=== PATIENT | female | born 1965 | race Caucasian/White ===

== ENCOUNTER → 2017-11-26 | Outpatient (CLI) | payer OTHER ==
[2017-11-26 09:42] LABS: ALT 29 U/L (9-52); AST 23 U/L (14-36); Cholesterol 168 mg/dL (<200); Glucose 97 mg/dL (74-99); HDL Cholesterol 45 mg/dL (40-60); LDL Cholesterol,Calculated 110 mg/dL (0-99); Triglycerides 67 mg/dL (<150)
== END | disposition home or self-care (01) ==
LOC: LABWHC1 08:48
PROVIDERS: ATTEND Family Medicine
DX: E78.2 Mixed hyperlipidemia (principal)
CPT/HCPCS: 36415; 80061; 82947; 84450; 84460

== ENCOUNTER → 2018-05-31 | Outpatient (CLI) | payer OTHER ==
[2018-05-31 09:52] LABS: HCT 40.8 % (34.0-46.0); HGB 13.8 gm/dL (11.4-16.0); MCH 31.4 pg (25.0-35.0); MCHC 33.9 g/dL (31.0-37.0); MCV 92.6 fL (80.0-100.0); Mean Platelet Volume 6.9; Platelet Count 233 k/uL (150-450); RDW 12.8 % (11.5-15.5); WBC 5.2 k/uL (3.8-10.6)
[2018-05-31 10:04] LABS: Appearance,Urine Cloudy (Clear); Bilirubin,Urine Negative (Negative); Blood,Urine Negative (Negative); Color,Urine Yellow; Glucose,Urine (UA) Negative (Negative); Ketones,Urine Negative (Negative); Leukocyte Esterase,Urine Moderate (Negative); Mucus,Urine Many /hpf; Nitrite,Urine Negative (Negative); PH, Urine 5.5 (5.0-8.0); Protein,Urine Trace (Negative); RBC,Urine 2 /hpf (0-5); Specific Gravity,Urine 1.022 (1.001-1.035); Squamous Epithelial Cell,Urine 8 /hpf (0-4); Urobilinogen,Urine <2.0 mg/dL (<2.0); WBC,Urine 3 /hpf (0-5)
[2018-05-31 17:29] LABS: Albumin 4.6 g/dL (3.80-4.90); Albumin/Globulin Ratio 2.19 (1.20-2.10); Anion Gap 8.9 mmol/L (4.00-12.00); Calcium 9.5 mg/dL (8.7-10.3); Carbon Dioxide 26.1 mmol/L (21.6-31.8); Globulin 2.1 g/dL (1.6-3.3); LDL Cholesterol,Calculated 139.4 mg/dL (0.0-131.0); Potassium 4.4 mmol/L (3.5-5.5); Total Bilirubin 0.6 mg/dL (0.2-1.2); Total Protein 6.7 g/dL (6.2-8.2); VLDL Calculation 19.6 mg/dL (5.00-40.00)
== END ==
LOC: LABWHC1 09:00
PROVIDERS: ATTEND Family Medicine
DX: Z00.00 Encounter for general adult medical examination without abnormal findings (principal)
CPT/HCPCS: 36415; 80053; 80061; 81001; 85027

== ENCOUNTER → 2018-11-19 | Outpatient (CLI) | payer BC ==
--- NOTE | 2018-11-20 10:06 | CT ---
EXAMINATION TYPE: CT foot LT wo con DATE OF EXAM: 11/19/2018 COMPARISON: No plain film supplied for correlation HISTORY: left heal pain CT DLP: 256 mGycm Automated exposure control for dose reduction was used. Helical imaging through the left foot. Bernstein l and sagittal reconstructions. FINDINGS: Soft tissue swelling is present. Small ossific density present lateral to the distal calcaneus is fla ke-like, only 1 to 2 mm by 7 mm in size, axial image 39, coronal image 41 No evident dislocation. No obvious Achilles tendon rupture, flexor and extensor tendons thought to be intact, peroneal longus an d brevis tendons show an expected normal course. IMPRESSION: POSSIBLE SMALL CHIP FRACTURE SOFT TISSUE SWELLING. FOOT MRI MAY BE OF INCREASED SENSITIVITY.
== END | disposition home or self-care (01) ==
LOC: RADCTMAIN 16:40
PROVIDERS: ATTEND Orthopaedic Surgery
DX: M25.572 Pain in left ankle and joints of left foot (principal)

== ENCOUNTER → 2018-11-19 | Outpatient (CLI) | payer BC | END | disposition home or self-care (01) | LOC: LABWHC1 15:41 | PROVIDERS: ATTEND Family Medicine | DX: E78.2 Mixed hyperlipidemia (principal) | CPT/HCPCS: 36415; 80061; 84450; 84460 ==

== ENCOUNTER → 2019-06-17 | Outpatient (CLI) | payer BC ==
[2019-06-17 10:13] LABS: HCT 37.6 % (34.0-46.0); HGB 12.8 gm/dL (11.4-16.0); MCH 31.7 pg (25.0-35.0); MCHC 34.1 g/dL (31.0-37.0); Mean Platelet Volume 7.3; Platelet Count 254 k/uL (150-450); RBC 4.04 m/uL (3.80-5.40); RDW 12.9 % (11.5-15.5); WBC 5.1 k/uL (3.8-10.6)
[2019-06-17 10:40] LABS: Appearance,Urine Cloudy (Clear); Bacteria,Urine Many /hpf; Bilirubin,Urine Negative (Negative); Blood,Urine Negative (Negative); Color,Urine Yellow; Glucose,Urine (UA) Negative (Negative); Ketones,Urine Negative (Negative); Leukocyte Esterase,Urine Large (Negative); Mucus,Urine Occasional /hpf; Nitrite,Urine Negative (Negative); PH, Urine 5.5 (5.0-8.0); Protein,Urine Negative (Negative); Squamous Epithelial Cell,Urine 1 /hpf (0-4); Urobilinogen,Urine <2.0 mg/dL (<2.0); WBC,Urine 64 /hpf (0-5)
[2019-06-17 15:54] LABS: Albumin 4.5 g/dL (3.80-4.90); Albumin/Globulin Ratio 2.14 (1.60-3.17); Anion Gap 6.7 mmol/L (4.00-12.00); Calcium 9.3 mg/dL (8.7-10.3); Carbon Dioxide 28.3 mmol/L (21.6-31.8); Chol/HDL Ratio 4.31; Globulin 2.1 g/dL (1.6-3.3); LDL Cholesterol,Calculated 157.2 mg/dL (0.0-131.0); Non-African American GFR(CKD) 72.5 (60.0-200.0); Potassium 4.7 mmol/L (3.5-5.5); Total Bilirubin 0.6 mg/dL (0.3-1.2); Total Protein 6.6 g/dL (6.2-8.2); VLDL Calculation 14.8 mg/dL (5.00-40.00)
== END | disposition home or self-care (01) ==
LOC: LABWHC1 09:32
PROVIDERS: ATTEND Family Medicine
DX: Z00.00 Encounter for general adult medical examination without abnormal findings (principal)
CPT/HCPCS: 36415; 80053; 80061; 81001; 85027

== ENCOUNTER → 2020-01-20 | Outpatient (CLI) | payer BC ==
[2020-01-20 16:16] LABS: Albumin 4.5 g/dL (3.80-4.90); Albumin/Globulin Ratio 1.8 (1.60-3.17); Anion Gap 7.6 mmol/L (4.00-12.00); BUN/Creat Ratio 16.67 Ratio (12.00-20.00); Calcium 9.8 mg/dL (8.7-10.3); Carbon Dioxide 28.4 mmol/L (21.6-31.8); Chol/HDL Ratio 4.6; Globulin 2.5 g/dL (1.6-3.3); LDL Cholesterol,Calculated 150.8 mg/dL (0.0-131.0); Non-African American GFR(CKD) 72.5 (60.0-200.0); Potassium 4.5 mmol/L (3.5-5.5); Total Bilirubin 0.7 mg/dL (0.2-1.2); VLDL Calculation 22.2 mg/dL (5.00-40.00)
== END | disposition home or self-care (01) ==
LOC: LABWHC1 10:29
PROVIDERS: ATTEND Family Medicine
DX: Z00.01 Encounter for general adult medical examination with abnormal findings (principal)
CPT/HCPCS: 36415; 80053; 80061

== ENCOUNTER → 2020-07-29 | Outpatient (CLI) | payer BC ==
[2020-07-29 10:59] LABS: HCT 36.9 % (37.2-46.3); HGB 12.3 g/dL (12.0-15.0); MCHC 33.3 g/dL (32.0-37.0); MCV 92.9 fL (80.0-97.0); Mean Platelet Volume 10.1 fL (9.5-12.2); Platelet Count 234 X 10*3/uL (140-440); RBC 3.97 X 10*6/uL (4.10-5.20); RDW 12.4 % (11.5-14.5); WBC 5.72 X 10*3/uL (4.50-10.00)
[2020-07-29 13:21] LABS: African American GFR (CKD) 96.2 (60.0-200.0); Albumin 4.5 g/dL (3.80-4.90); Albumin/Globulin Ratio 1.88 (1.60-3.17); BUN/Creat Ratio 23.75 Ratio (12.00-20.00); Calcium 8.9 mg/dL (8.7-10.3); Chol/HDL Ratio 4.2; Globulin 2.4 g/dL (1.6-3.3); LDL Cholesterol,Calculated 138.6 mg/dL (0.0-131.0); Potassium 4.2 mmol/L (3.5-5.5); Total Bilirubin 0.4 mg/dL (0.3-1.2); Total Protein 6.9 g/dL (6.2-8.2); VLDL Calculation 24.4 mg/dL (5.00-40.00)
== END | disposition home or self-care (01) ==
LOC: LABWHC1 07:32
PROVIDERS: ATTEND Family Medicine
DX: Z00.01 Encounter for general adult medical examination with abnormal findings (principal); E55.9 Vitamin D deficiency, unspecified
CPT/HCPCS: 36415; 80053; 80061; 82306; 85027

== ENCOUNTER → 2022-02-06 | Outpatient (CLI) | payer BC ==
[2022-02-06 15:37] LABS: HCT 38.9 % (37.2-46.3); HGB 13.1 g/dL (12.0-15.0); MCH 30.5 pg (27.0-32.0); MCHC 33.7 g/dL (32.0-37.0); MCV 90.7 fL (80.0-97.0); Mean Platelet Volume 10.1 fL (9.5-12.2); NRBC Per 100 WBC 0 /100 WBCS (0.0-0.0); Platelet Count 235 X 10*3/uL (140-440); RBC 4.29 X 10*6/uL (4.10-5.20); RDW 12.7 % (11.5-14.5); WBC 4.63 X 10*3/uL (4.50-10.00)
[2022-02-06 16:38] LABS: ALT 23 U/L (8-44); AST 25 U/L (13-35); African American GFR (CKD) 82.3 (60.0-200.0); Albumin 4.6 g/dL (3.8-4.9); Alkaline Phosphatase 90 U/L (41-126); BUN/Creat Ratio 12.78 Ratio (12.00-20.00); Blood Urea Nitrogen 11.5 mg/dL (9.0-27.0); Calcium 9.7 mg/dL (8.7-10.3); Carbon Dioxide 27.9 mmol/L (20.0-27.5); Chloride 103 mmol/L (96-109); Chol/HDL Ratio 4.63 Ratio; Globulin 2.7 g/dL (1.6-3.3); Glucose 105 mg/dL (70-110); LDL Cholesterol,Calculated 151.2 mg/dL (0.0-131.0); Potassium 4.8 mmol/L (3.5-5.5); Sodium 141 mmol/L (135-145); Total Protein 7.3 g/dL (6.2-8.2)
== END | disposition home or self-care (01) ==
LOC: LABWHC1 10:08
PROVIDERS: ATTEND Family Medicine
DX: Z00.01 Encounter for general adult medical examination with abnormal findings (principal)
CPT/HCPCS: 36415; 80053; 80061; 85027

== ENCOUNTER → 2022-11-24 | Outpatient (CLI) | payer BC ==
--- NOTE | 2022-11-24 17:00 | US ---
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 painful TECHNIQUE: Multiple grayscale ultrasound images of the area concern in the left lateral upper thigh was performed. FINDINGS/IMPRESSION: Scanned within area of concern, left lateral upper thigh. No discrete mass or f luid collection identified in the patient's region of palpable abnormality.
--- NOTE | 2022-11-24 17:02 | US ---
EXAMINATION TYPE: US mass soft tissue chest/back DATE OF EXAM: 11/24/2022 COMPARISON: NONE CLINICAL INDICATION: Female, 57 years old with history of D17.22 BENIGN LIPOMATOUS NEOPLASM OF SKIN A ND SUBCUTANEOUS T; Lump left shoulder for 2 years, getting larger TECHNIQUE: Multiple grayscale and color Doppler ultrasound images of the left shoulder were obtained . FINDINGS/IMPRESSION: Scanned within area of concern, left upper arm, near shoulder. There is a isoec hoic area measuring 5.3 x 1.6 x 5.6 cm. This demonstrates internal striations without internal color flow. This is most consistent with a lipoma.
== END | disposition home or self-care (01) ==
LOC: RADUSWWP 16:03
PROVIDERS: ATTEND Surgery Plastic and Reconstructive Surgery
DX: D17.22 Benign lipomatous neoplasm of skin and subcutaneous tissue of left arm (principal); D17.24 Benign lipomatous neoplasm of skin and subcutaneous tissue of left leg

== ENCOUNTER 2023-01-12 06:14 | Day surgery (SDC) | payer BC ==
[~2023-01-12 06:14] MED LIST: DEXAMETHASONE SOD PHOSPHATE 4 MG/ML 1 ML VIAL IV ONE; HEPARIN SODIUM,PORCINE/PF 5,000 UNIT/0.5 ML SYRINGE SQ PRN; LACTATED RINGERS 1,000 ML IV SCH; LIDOCAINE 1% (10MG/ML) FOR IV START INTRADERMA PRN; ONDANSETRON 4 MG/2 ML VIAL IVP ONE; Pre Op ABX Message 1 EACH MISC MISCELLANE ONE
[2023-01-12] MEDS ORDERED: HYDROmorphone 0.5 MG/0.5 ML SYRINGE IVP PRN (07:00)
--- NOTE | 2023-01-12 07:35 | P.GSHP ---
History of Present Illness H&P Date: 01/12/23 CHIEF COMPLAINT: Tumor left upper arm, 8 cm HISTORY OF PRESENT ILLNESS: The patient is a 57 year-old male with left upper arm mass with tenderness over 5+ years. She now who presents for definitive excision. PAST MEDICAL HISTORY: Please see list. PAST SURGICAL HISTORY: Please see list. MEDICATIONS: Please see list. ALLERGIES: Please see list. SOCIAL HISTORY: No illicit drug use FAMILY HISTORY: No reports of Crohn disease or ulcerative colitis. REVIEW OF ORGAN SYSTEMS: CONSTITUTIONAL: No reports of fevers or chills. GI: Denies any blood in stools or constipation. PHYSICAL EXAM: VITAL SIGNS: Stable Musculoskeletal: No clubbing cyanosis GENERAL: Well developed and in no acute distress. Pleasant. HEENT: No sclera icterus. Extraocular movements grossly intact. Moist buccal mucosa. Head is atraumatic, normocephalic. Hears conversational speech. No nasal drainage. NECK: Supple without lymphadenopathy. No JV distention. CHEST: Non-labored respirations and equal bilateral excursions. CARDIOVASCULAR: Regular rate and rhythm. Palpable 2+ radial pulses. ABDOMEN: Soft. Non-tender. Nondistended. NEUROLOGIC: No focal or lateralizing signs. PSYCH: Appropriate affect. Alert and oriented to person, place and time. SKIN: Left upper arm tumor, 5 cm ASSESSMENT: 1. Left upper arm tumor, 5 cm PLAN: 1. Will proceed of excision of left upper arm tumor. Benefits and risks described. Past Medical History Past Medical History: GERD/Reflux, Hyperlipidemia, Hypertension History of Any Multi-Drug Resistant Organisms: None Reported Additional Past Surgical History / Comment(s): ARTHROSCOPY LEFT KNEE, BUNIONECTOMY RIGHT FOOT. D & C. Past Anesthesia/Blood Transfusion Reactions: No Reported Reaction Additional Past Anesthesia/Blood Transfusion Reaction / Comment(s): DAUGHTER PONV. Past Psychological History: No Psychological Hx Reported Smoking Status: Never smoker Past Alcohol Use History: Occasional Past Drug Use History: None Reported - Past Family History Mother Family Medical History: Deep Vein Thrombosis (DVT) Brother(s) Family Medical History: Pulmonary Embolus Medications and Allergies Home Medications Medication Instructions Recorded Confirmed Type Cholecalciferol [Vitamin D3 (25 1 tab PO DAILY 01/08/23 01/12/23 History Mcg = 1000 Iu)] Ibuprofen [Advil] 200 - 400 mg PO Q6H PRN 01/08/23 01/12/23 History Ubidecarenone [Co Q-10] 1 cap PO DAILY 01/08/23 01/12/23 History Pravastatin Sodium [Pravachol] 20 mg PO HS 01/12/23 01/12/23 History lisinopriL [Zestril] 10 mg PO DAILY 01/12/23 01/12/23 History Allergies Allergy/AdvReac Type Severity Reaction Status Date / Time adhesive tape AdvReac Rash/Hives Verified 01/12/23 06:39 Surgical - Exam Vital Signs Temp Pulse Resp BP Pulse Ox 97.9 F 66 18 150/79 99 01/12/23 06:33 01/12/23 06:33 01/12/23 06:33 01/12/23 06:33 01/12/23 06:33
[2023-01-12] MEDS ORDERED: PROPOFOL 10 MG/ML 20 ML VIAL IV ONE (07:40)
[2023-01-12] MEDS ORDERED: PHENYLEPHRINE-0.9% NACL SYG 1,000 MCG/10 ML SYRINGE ONE (07:40)
[2023-01-12] MEDS ORDERED: KETOROLAC 15 MG/ML 1 ML VIAL ONE (07:40)
[2023-01-12] MEDS ORDERED: MIDAZOLAM 2 MG/2 ML VIAL ONE (07:40)
[2023-01-12] MEDS ORDERED: fentaNYL (PF) 50 MCG/ML 2 ML AMP ONE (07:40)
[2023-01-12] MEDS ORDERED: LIDOCAINE 2% INJ 20 MG/ML (2 ML VIAL) ONE (07:40)
[2023-01-12] MEDS ORDERED: LIDOCAINE 1%-EPI 1:100,000 50 ML VIAL SQ ONE (08:07)
[2023-01-12] MEDS ORDERED: SODIUM CHLORIDE 0.9% 100 ML with ceFAZolin 2,000 MG IV ONE ×2 (08:07)
[2023-01-12 08:50] VITALS: TEMP 97.4
[2023-01-12 08:57] VITALS: RESP 16
--- NOTE | 2023-01-12 09:10 | P.OP ---
Date of Procedure: 01/12/23 Description of Procedure: SURGEON: KIERSTEN PEMBERTON MD PRODUCT SUPPORT MANAGER: NONE. PREOPERATIVE DIAGNOSES: 1. Left upper arm tumor 2. Hypertensive heart disease 3. Hyperlipidemia 4. Gastroesophageal reflux POSTOPERATIVE DIAGNOSES: 1. Left upper outer arm intramuscular, 5 cm x 4 cm 2. Hypertensive heart disease 3. Hyperlipidemia 4. Gastroesophageal reflux OPERATION: 1. Excision of complex left upper outer arm intramuscular/subfascial tumor, 5 cm x 4 cm 2. Intermediate closure of left upper outer arm incision, 8 cm. ANESTHESIA: LMA ESTIMATED BLOOD LOSS: 10 mL. SPECIMENS REMOVED: 1. Left upper arm intramuscular tumor COMPLICATIONS: None. FINDINGS: 1. Left upper outer arm intramuscular tumor, 5 x 4 cm complex tumor. INDICATIONS: The patient is a 57-year-old female who presents with left upper arm tumor. Surgical options, including excision was discussed. Benefits and risks were described. Informed consent was obtained. DESCRIPTION OF PROCEDURE: Patient was brought into the operating room, laid in left lateral decubitus position. After general sedation, the left upper arm was prepped and draped in standard sterile fashion using ChloraPrep. A timeout protocol was confirmed with the surgical team regarding patient's name including procedures to be performed. Preoperative medications was administered. Next, a local field block was administered. The left upper arm was measured using a ruler with borders marked with indelible marker. A transverse of 8 cm incision was made into the dermis followed by circumferential dissection using electro-Bovie cautery into the subfascial/intramuscular tissue of the left upper outer arm. Size of mass 5 cm x 4 cm, so fascial psoas intramuscular tumor. Hemostasis was checked with electrocautery. The wound was closed in multiple layers including 0 Vicryl for the deep subcutaneous tissue. The skin was closed using 3-0 Monocryl. The skin was cleansed. Exofin tape was placed. Optifoam dressing was placed. At the end of the procedure, needle, sponge, and instrument count had been verified correct by the manager surgical. The patient was taken to the postanesthesia care unit in stable condition. Plan - Discharge Summary Discharge Rx Participant: No New Discharge Prescriptions: New Acetaminophen Tab [Tylenol Tab] 1,000 mg PO Q6HR PRN #30 tablet PRN Reason: Pain Ibuprofen [Motrin] 600 mg PO Q8HR PRN #30 tab PRN Reason: Pain Continue Ubidecarenone [Co Q-10] 1 cap PO DAILY Pravastatin Sodium [Pravachol] 20 mg PO HS Cholecalciferol [Vitamin D3 (25 Mcg = 1000 Iu)] 1 tab PO DAILY lisinopriL [Zestril] 10 mg PO DAILY Discontinued Ibuprofen [Advil] 200 - 400 mg PO Q6H PRN PRN Reason: Pain Discharge Medication List Cholecalciferol [Vitamin D3 (25 Mcg = 1000 Iu)] 1 tab PO DAILY 01/08/23 [History] Ubidecarenone [Co Q-10] 1 cap PO DAILY 01/08/23 [History] Acetaminophen Tab [Tylenol Tab] 1,000 mg PO Q6HR PRN #30 tablet 01/12/23 [Rx] Ibuprofen [Motrin] 600 mg PO Q8HR PRN #30 tab 01/12/23 [Rx] Pravastatin Sodium [Pravachol] 20 mg PO HS 01/12/23 [History] lisinopriL [Zestril] 10 mg PO DAILY 01/12/23 [History] Follow up Appointment(s)/Referral(s): Kiersten Pemberton MD [STAFF PHYSICIAN] - 01/16/23 11:15 am Patient Instructions/Handouts: *Surgery [facility] - (Anesthesia) Discharge Ins tructions Outpatient Surgery Activity/Diet/Wound Care/Special Instructions: DO NOT REMOVE DRESSING. KEEP DRESSING DRY. May shower. Diet as tolerated. Use Tylenol and ibuprofen or Aleve scheduled for the next 24-48 hours for best pain relief. Use ice along incisions for today to prevent swelling. Discharge Disposition: HOME SELF-CARE
[2023-01-12 09:43] VITALS: BP 124/77; PULSE 78
== END 2023-01-12 09:54 | disposition home or self-care (01) ==
LOC: OR 06:14
PROVIDERS: ATTEND Surgery Plastic and Reconstructive Surgery
DX: D17.22 Benign lipomatous neoplasm of skin and subcutaneous tissue of left arm (principal); I11.9 Hypertensive heart disease without heart failure; E78.5 Hyperlipidemia, unspecified; K21.9 Gastro-esophageal reflux disease without esophagitis; I10 Essential (primary) hypertension; Z79.899 Other long term (current) drug therapy; Z86.59 Personal history of other mental and behavioral disorders
CPT/HCPCS: 24073; 88304; 88305; J2250; J1100; J2405; J0690; J3010; J1885; J2704; J1644; J2001; J2371

== ENCOUNTER → 2023-02-07 | Outpatient (CLI) | payer BC ==
[2023-02-07 20:03] LABS: Appearance,Urine Clear (Clear); Bilirubin,Urine Negative (Negative); Blood,Urine Negative (Negative); Color,Urine Yellow (Yellow); Ketones,Urine Negative (Negative); Nitrite,Urine Negative (Negative); PH, Urine 6.5; Specific Gravity,Urine 1.018 (1.001-1.030); Urobilinogen,Urine 0.2 E.U./DL
[2023-02-07 20:54] LABS: Chol/HDL Ratio 4.32 Ratio; LDL Cholesterol,Calculated 154.3 mg/dL (0.0-131.0); VLDL Calculation 15.64 mg/dL (5.00-40.00)
[2023-02-07 20:55] LABS: ALT 38 U/L (8-44); AST 40 U/L (13-35); Albumin 4.6 d/dL (3.8-4.9); Albumin/Globulin Ratio 1.92 Ratio (1.60-3.17); Alkaline Phosphatase 77 U/L (41-126); BUN/Creat Ratio 17.57 Ratio (12.00-20.00); Blood Urea Nitrogen 12.3 mg/dL (9.0-27.0); Calcium 9.7 mg/dL (8.7-10.3); Carbon Dioxide 26.9 mmol/L (21.6-31.8); Chloride 103 mmol/L (96-109); Globulin 2.4 d/dL (1.6-3.3); Glucose 87 mg/dL (70-110); Potassium 4.5 mmol/L (3.5-5.5); Sodium 140 mmol/L (135-145); Total Bilirubin 0.6 mg/dL (0.3-1.2)
== END | disposition home or self-care (01) ==
LOC: LABWHC1 14:18
PROVIDERS: ATTEND Family Medicine
DX: I10 Essential (primary) hypertension (principal); E55.9 Vitamin D deficiency, unspecified; E78.2 Mixed hyperlipidemia
CPT/HCPCS: 36415; 80053; 80061; 81003; 82306

== ENCOUNTER → 2023-08-21 | Outpatient (CLI) | payer BC ==
[2023-08-21 16:39] LABS: HCT 35.1 % (37.2-46.3); HGB 12.2 g/dL (12.0-15.0); MCH 31.8 pg (27.0-32.0); MCHC 34.8 g/dL (32.0-37.0); MCV 91.4 FL (80.0-97.0); Mean Platelet Volume 10.1 FL (9.5-12.2); NRBC Per 100 WBC 0 X 10*3/uL (0.00-0.01); Platelet Count 239 X 10*3/uL (140-440); RBC 3.84 X 10*6/uL (4.10-5.20); RDW 12.6 % (11.5-14.5); WBC 5.09 X 10*3/uL (4.50-10.00)
[2023-08-21 16:57] LABS: ALT 47 U/L (8-44); AST 38 U/L (13-35); Albumin 4.3 g/dL (3.8-4.9); Albumin/Globulin Ratio 1.59 Ratio (1.60-3.17); Alkaline Phosphatase 82 U/L (41-126); Blood Urea Nitrogen 17.2 mg/dL (9.0-27.0); Calcium 9.5 mg/dL (8.7-10.3); Carbon Dioxide 27.2 mmol/L (21.6-31.8); Chloride 101 mmol/L (96-109); Chol/HDL Ratio 4.71 Ratio; Globulin 2.7 g/dL (1.6-3.3); Glucose 107 mg/dL (70-110); LDL Cholesterol,Calculated 143.9 mg/dL (0.0-131.0); Potassium 4.4 mmol/L (3.5-5.5); Sodium 140 mmol/L (135-145); Total Bilirubin 0.3 mg/dL (0.3-1.2)
== END | disposition home or self-care (01) ==
LOC: LABWHC1 12:32
PROVIDERS: ATTEND Family Medicine
DX: Z00.01 Encounter for general adult medical examination with abnormal findings (principal); E55.9 Vitamin D deficiency, unspecified
CPT/HCPCS: 36415; 80053; 80061; 82306; 85027

== ENCOUNTER → 2024-02-15 | Outpatient (CLI) | payer BC ==
[2024-02-15 16:40] LABS: HCT 37.5 % (37.2-46.3); HGB 12.3 g/dL (12.0-15.0); MCH 30.8 pg (27.0-32.0); MCHC 32.8 g/dL (32.0-37.0); MCV 93.8 FL (80.0-97.0); Mean Platelet Volume 10.2 FL (9.5-12.2); NRBC Per 100 WBC 0 X 10*3/uL (0.00-0.01); Platelet Count 246 X 10*3/uL (140-440); RDW 12.9 % (11.5-14.5); WBC 5.18 X 10*3/uL (4.50-10.00)
[2024-02-15 17:28] LABS: ALT 25 U/L (8-44); AST 27 U/L (13-35); Albumin 4.4 g/dL (3.8-4.9); Albumin/Globulin Ratio 1.69 Ratio (1.60-3.17); Alkaline Phosphatase 87 U/L (41-126); BUN/Creat Ratio 17.33 Ratio (12.00-20.00); Blood Urea Nitrogen 15.6 mg/dL (9.0-27.0); Calcium 9.7 mg/dL (8.7-10.3); Carbon Dioxide 24.8 mmol/L (21.6-31.8); Chloride 101 mmol/L (96-109); Chol/HDL Ratio 5.31 Ratio; Globulin 2.6 g/dL (1.6-3.3); Glucose 123 mg/dL (70-110); LDL Cholesterol,Calculated 152.5 mg/dL (0.0-131.0); Potassium 4.9 mmol/L (3.5-5.5); Sodium 139 mmol/L (135-145); Total Bilirubin 0.3 mg/dL (0.3-1.2)
== END | disposition home or self-care (01) ==
LOC: LABWHC1 08:47
PROVIDERS: ATTEND Family Medicine
DX: Z00.01 Encounter for general adult medical examination with abnormal findings (principal); E55.9 Vitamin D deficiency, unspecified
CPT/HCPCS: 36415; 80053; 80061; 82306; 85027

== ENCOUNTER → 2024-08-14 | Outpatient (CLI) | payer BC ==
[2024-08-14 15:01] LABS: HCT 35.8 % (37.2-46.3); MCH 30.6 pg (27.0-32.0); MCHC 33.5 g/dL (32.0-37.0); MCV 91.3 FL (80.0-97.0); Mean Platelet Volume 10.4 FL (9.5-12.2); NRBC Per 100 WBC 0 X 10*3/uL (0.00-0.01); Platelet Count 266 X 10*3/uL (140-440); RBC 3.92 X 10*6/uL (4.10-5.20); RDW 12.7 % (11.5-14.5)
[2024-08-14 15:31] LABS: ALT 18 U/L (8-44); AST 22 U/L (13-35); Albumin 4.3 g/dL (3.8-4.9); Albumin/Globulin Ratio 1.54 Ratio (1.60-3.17); Alkaline Phosphatase 85 U/L (41-126); BUN/Creat Ratio 14.44 Ratio (12.00-20.00); Calcium 9.6 mg/dL (8.7-10.3); Chloride 101 mmol/L (96-109); Chol/HDL Ratio 5.72 Ratio; Globulin 2.8 g/dL (1.6-3.3); Glucose 109 mg/dL (70-110); LDL Cholesterol,Calculated 156.5 mg/dL (0.0-131.0); Potassium 4.6 mmol/L (3.5-5.5); Sodium 139 mmol/L (135-145); Total Bilirubin 0.3 mg/dL (0.3-1.2); Total Protein 7.1 g/dL (6.2-8.2)
== END | disposition home or self-care (01) ==
LOC: LABWHC1 09:32
PROVIDERS: ATTEND Family Medicine
DX: Z00.01 Encounter for general adult medical examination with abnormal findings (principal); E55.9 Vitamin D deficiency, unspecified
CPT/HCPCS: 36415; 80053; 80061; 82306; 85027

== ENCOUNTER → 2024-08-23 | Outpatient (CLI) | payer BC | END | disposition home or self-care (01) | LOC: LABWHC1 07:58 | PROVIDERS: ATTEND Family Medicine | DX: N39.0 Urinary tract infection, site not specified (principal) | CPT/HCPCS: 87086 ==